=== PATIENT | female | born 1985 | race Caucasian/White ===

== ENCOUNTER 2016-09-18 22:05 | Emergency (ER) | payer BC | END 2016-09-19 02:13 | disposition home or self-care (01) | LOC: ER1 22:05 | DX: S90.01XA Contusion of right ankle, initial encounter (principal); E06.3 Autoimmune thyroiditis; Z88.0 Allergy status to penicillin; Z79.899 Other long term (current) drug therapy; W21.07XA Struck by softball, initial encounter; Y92.009 Unspecified place in unspecified non-institutional (private) residence as the place of occurrence of the external cause | CPT/HCPCS: 73610; 99283 ==